=== PATIENT | female | born 1965 | race Two or more races ===

== ENCOUNTER 2018-02-03 09:59 | Outpatient (CLI) | payer OTHER | END 2018-02-03 10:37 | disposition home or self-care (01) | LOC: SONOGRAMA 09:59 | DX: E04.1 Nontoxic single thyroid nodule (principal) ==

== ENCOUNTER 2022-08-10 13:09 | Outpatient (CLI) | payer OTHER | END 2022-08-10 13:18 | disposition home or self-care (01) | LOC: SONOGRAMA 13:09 | PROVIDERS: ATTEND Pathology Anatomic Pathology & Clinical Pathology | DX: E04.2 Nontoxic multinodular goiter (principal); E06.3 Autoimmune thyroiditis ==